=== PATIENT | female | born 1990 | race Caucasian/White ===

== ENCOUNTER 2017-07-11 10:58 | Emergency (ER) | payer MEDICAID ==
[~2017-07-11] VITALS: Ht 162.6 cm; Wt 54.4 kg
[2017-07-11 10:58] VITALS: BP 142/65
== END 2017-07-11 11:29 | disposition home or self-care (01) ==
LOC: ER 11:01
DX: L50.9 Urticaria, unspecified (principal); I67.1 Cerebral aneurysm, nonruptured
CPT/HCPCS: 99283; A4606; Z7610

== ENCOUNTER 2018-04-10 21:44 | Emergency (ER) | payer MEDICAID ==
[~2018-04-10] VITALS: Ht 162.6 cm; Wt 54.4 kg
[2018-04-10 22:01] VITALS: BP 131/96
[2018-04-10 22:13] LABS: APPEARANCE,URINE SL CLOUDY (CLEAR); BILIRUBIN,URINE NEGATIVE (NEGATIVE); BLOOD, URINE 1+ Ery/uL (NEGATIVE); COLOR,URINE YELLOW (YELLOW); KETONES,URINE NEGATIVE (NEGATIVE); LEUKOCYTE ESTERASE ,URINE 2+ (NEGATIVE); NITRITE, URINE NEGATIVE (NEGATIVE); PROTEIN,URINE TRACE mg/dl (NEGATIVE); UGLUCOSE NEGATIVE (NEGATIVE); UROBILINOGEN,URINE 0.2 EU/dL (0.2)
[2018-04-10 22:24] LABS: BACTERIA,URINE Few /HPF (None Seen); SQUAMOUS EPITHELIAL CELL,UR Few /HPF (None Seen); WBC,URINE TOO NUMEROUS TO COUN /HPF (0-3)
== END 2018-04-10 22:46 | disposition home or self-care (01) ==
LOC: ER 21:45
DX: N39.0 Urinary tract infection, site not specified (principal); Z98.890 Other specified postprocedural states
CPT/HCPCS: 81001; 84703; 87086; 99284; A4606; Z7610; 81000-TC; 87186-TC

== ENCOUNTER 2019-04-23 19:41 | Emergency (ER) | payer MEDICAID ==
[~2019-04-23] VITALS: Ht 162.6 cm; Wt 53.5 kg
[2019-04-23 19:41] VITALS: BP 130/71
== END 2019-04-23 20:27 | disposition home or self-care (01) ==
LOC: ER 19:45
DX: H92.01 Otalgia, right ear (principal); Z98.890 Other specified postprocedural states

== ENCOUNTER 2020-01-26 07:50 | Emergency (ER) | payer MEDICAID ==
[~2020-01-26] VITALS: Ht 162.6 cm; Wt 58.1 kg
[2020-01-26 07:59] VITALS: BP 117/78
== END 2020-01-26 08:28 | disposition home or self-care (01) ==
LOC: ER 07:50
DX: J02.9 Acute pharyngitis, unspecified (principal); Z98.890 Other specified postprocedural states